=== PATIENT | male | born 1985 | race Caucasian/White ===

== ENCOUNTER 2021-02-23 17:12 | Emergency (ER) | payer SELFPAY ==
[2021-02-23 17:53] LABS: #Basophils 0.2 thou/uL (0.0-0.2); #Eosinphils 0.3 thou/uL (0.0-0.7); #Lymphocytes 1.6 thou/uL (1.20-3.40); #Monocytes 0.6 thou/uL (0.11-0.59); #Neutrophils 7.1 thou/uL (1.40-6.50); %Basophils 1.7 % (0.0-1.0); %Eosinophils 2.8 % (0.0-10.0); %Lymphocytes 16.6 % (21.0-51.0); Hemoglobin 12.7 g/dL (14.0-18.0); Mean Corpuscular HGB CONC 31.4 g/dL (32.0-36.0); Mean Corpuscular Hemoglobin 28.8 pg (27.0-31.0); Mean Corpuscular Volume 91.9 fL (78.0-98.0); Mean Platelet Volume 6.2 fL (7.4-10.4); Platelet Count 324 thou/uL (130-400); RBC Distribution Width 11.7 % (11.5-14.5); White Blood Cell (WBC) Count 9.7 thou/uL (4.8-10.8)
[2021-02-23 18:09] LABS: ALT (SGPT) 13 U/L (8-55); AST (SGOT) 16 U/L (5-34); Albumin 3.8 g/dL (3.5-5.0); Alkaline Phosphatase 106 U/L (40-110); Anion Gap 14 mmol/L (10-20); BUN (Urea Nitrogen) 21 mg/dL (8.9-20.6); Bilirubin, Total 0.7 mg/dL (0.2-1.2); Calc. Creatinine Clearance 0 mL/min (70-130); Calcium 9.6 mg/dL (7.8-10.44); Carbon Dioxide 27 mmol/L (22-29); Chloride 102 mmol/L (98-107); Globulin 3.1 g/dL (2.4-3.5); Glucose 123 mg/dL (70-105); Lipase 48 U/L (8-78); Protein, Total 6.9 g/dL (6.0-8.3); Sodium 139 mmol/L (136-145)
[2021-02-23 18:57] LABS: Bilirubin Negative (Negative); Blood, Urine Trace (Negative); Clarity Clear (Clear); Glucose, Urine (Dipstick) Negative (Negative); Ketone, Urine 15 mg/dL (Negative); Leukocyte Negative (Negative); Nitrite Negative (Negative); Protein, Urine (Dipstick) > or equal to 300 mg/dL (Neg-Trace); Specific Gravity, Urine 1.025 (1.005-1.030); Urobilinogen 0.2 mg/dL (Less than 2); pH, Urine 5.5 (5.0-9.0)
[2021-02-23 19:13] LABS: Bacteria/HPF Rare-Few HPF (None Seen); RBC/HPF 0-3 HPF (0-3); Squamous Epithelial 0-3 HPF (0-3); WBC/HPF 0-3 HPF (0-3)
[2021-02-23] MEDS ORDERED: Ondansetron ODT 4 MG TAB ONE (19:44)
== END 2021-02-23 19:47 | disposition home or self-care (01) ==
LOC: MADERS 17:12
DX: A08.4 Viral intestinal infection, unspecified (principal); I10 Essential (primary) hypertension; E10.9 Type 1 diabetes mellitus without complications; Z79.4 Long term (current) use of insulin; Z79.899 Other long term (current) drug therapy
CPT/HCPCS: 36415; 80053; 81003; 81015; 83690; 85025; 99284; Q0162

== ENCOUNTER 2021-02-25 03:53 | Emergency (ER) | payer SELFPAY ==
[2021-02-25] MEDS ORDERED: Metoclopramide HCl 10 MG/2 ML VIAL ONE (04:26)
[2021-02-25] MEDS ORDERED: diphenhydrAMINE 50 MG/ML VIAL ONE (04:26)
[2021-02-25] MEDS ORDERED: Famotidine In NaCl 20 mg/50 ml Premix Bag ONE (04:26)
[2021-02-25] MEDS ORDERED: Lactated Ringer's 1,000 ML ONE (04:26)
[2021-02-25 04:44] LABS: Anion Gap 33 mmol/L (10-20); Band 7 % (5-11); Hemoglobin 12.9 g/dL (14.0-18.0); Lymphocytes 2 % (21-51); MDiff Complete? YES; Mean Corpuscular HGB CONC 31.5 g/dL (32.0-36.0); Mean Corpuscular Volume 92.2 fL (78.0-98.0); Mean Platelet Volume 6.3 fL (7.4-10.4); Monocytes 6 % (0-10); Neutrophil 85 % (42-75); Platelet Count 371 thou/uL (130-400); RBC Distribution Width 11.8 % (11.5-14.5); RBC Morphology Normal; Red Blood Cell (RBC) Count 4.43 mill/uL (4.70-6.10); White Blood Cell (WBC) Count 25.3 thou/uL (4.8-10.8)
[2021-02-25 04:52] LABS: ALT (SGPT) 15 U/L (8-55); AST (SGOT) 15 U/L (5-34); Albumin 3.7 g/dL (3.5-5.0); Alkaline Phosphatase 109 U/L (40-110); BUN (Urea Nitrogen) 75 mg/dL (8.9-20.6); Bilirubin, Total 0.7 mg/dL (0.2-1.2); Calc. Creatinine Clearance 0 mL/min (70-130); Calcium 8.2 mg/dL (7.8-10.44); Carbon Dioxide 13 mmol/L (22-29); Chloride 84 mmol/L (98-107); Globulin 2.7 g/dL (2.4-3.5); Glucose 655 mg/dL (70-105); Lipase 8 U/L (8-78); Potassium 4.6 mmol/L (3.5-5.1); Protein, Total 6.4 g/dL (6.0-8.3); Sodium 125 mmol/L (136-145)
[2021-02-25] MEDS ORDERED: Sodium Chloride 0.9% 100 ML ONE (05:08)
[2021-02-25] MEDS ORDERED: Insulin Regular 300 UNITS/3 ML VIAL ONE (05:08)
[2021-02-25] MEDS ORDERED: NS 0.9% w/ 20 MEQ KCL 1,000 ML ONE (05:15)
[2021-02-25 05:22] LABS: Base Excess-Venous -9.9 mmol/L (-2.0 to 3.0); Bicarbonate (HCO3v) 15.3 mmol/L (22.0-28.0); CO2 Tension (PvCO2) 30.8 mmHg (42.0-51.0); Chloride 86 mmol/L (98-107); Hemoglobin - Calc 12.7 g/dL (14.0-18.0); Potassium 4.4 mmol/L (3.5-5.1); Sodium 119 mmol/L (138-145); T. Carbon Dioxide 16.2 mmol/L (22.0-28.0); vO2 Saturation-calc 79.6 % (60.0-85.0)
== END 2021-02-25 05:51 | disposition short-term general hospital (02) ==
LOC: MADERS 03:53
DX: E10.10 Type 1 diabetes mellitus with ketoacidosis without coma (principal); N17.9 Acute kidney failure, unspecified; R10.13 Epigastric pain; R94.31 Abnormal electrocardiogram [ECG] [EKG]; I10 Essential (primary) hypertension; Z91.19 Patient's noncompliance with other medical treatment and regimen
CPT/HCPCS: 71046; 80053; 82330; 82803; 83605; 83690; 85025; 93005; 96365; 96367; 96375; J1200; J1815; J2765; J3480; J3490; J7120

== ENCOUNTER 2021-08-18 11:17 | Emergency (ER) | payer SELFPAY ==
[2021-08-18] MEDS ORDERED: Metoclopramide HCl 10 MG/2 ML VIAL ONE (12:20)
[2021-08-18] MEDS ORDERED: Lactated Ringer's 1,000 ML ONE (12:20)
[2021-08-18 12:31] LABS: #Basophils 0.1 thou/uL (0.0-0.2); #Lymphocytes 1.3 thou/uL (1.20-3.40); #Monocytes 1.4 thou/uL (0.11-0.59); #Neutrophils 16.4 thou/uL (1.40-6.50); %Basophils 0.6 % (0.0-1.0); %Eosinophils 0.1 % (0.0-10.0); %Lymphocytes 6.7 % (21.0-51.0); %Monocytes 7.3 % (0.0-10.0); %Neutrophils 85.3 % (42.0-75.0); Hemoglobin 12.2 g/dL (14.0-18.0); Mean Corpuscular HGB CONC 30.9 g/dL (32.0-36.0); Mean Corpuscular Volume 93.8 fL (78.0-98.0); Mean Platelet Volume 8.2 fL (7.4-10.4); Platelet Count 344 thou/uL (130-400); RBC Distribution Width 12.4 % (11.5-14.5); Red Blood Cell (RBC) Count 4.21 mill/uL (4.70-6.10); White Blood Cell (WBC) Count 19.2 thou/uL (4.8-10.8)
[2021-08-18 12:42] LABS: Bilirubin Small (Negative); Blood, Urine Negative (Negative); Clarity Clear (Clear); Glucose, Urine (Dipstick) 100 mg/dL (Negative); Ketone, Urine Negative (Negative); Leukocyte Negative (Negative); Nitrite Negative (Negative); Protein, Urine (Dipstick) 100 mg/dL (Neg-Trace); Urobilinogen 0.2 mg/dL (Less than 2)
[2021-08-18 12:43] LABS: Base Excess-Venous -4.6 mmol/L (-2.0 to 3.0); Bicarbonate (HCO3v) 16.2 mmol/L (22.0-28.0); CO2 Tension (PvCO2) 20.3 mmHg (42.0-51.0); Calcium, Ionized 0.94 mmol/L (1.15-1.33); Chloride 97 mmol/L (98-107); Hemoglobin - Calc 13.6 g/dL (14.0-18.0); Potassium 4.2 mmol/L (3.5-5.1); Sodium 127 mmol/L (138-145); T. Carbon Dioxide 16.8 mmol/L (22.0-28.0); vO2 Saturation-calc 99.6 % (60.0-85.0)
[2021-08-18 12:47] LABS: ALT (SGPT) 11 U/L (8-55); AST (SGOT) 11 U/L (5-34); Albumin 4.2 g/dL (3.5-5.0); Alkaline Phosphatase 121 U/L (40-110); Anion Gap 24 mmol/L (10-20); BUN (Urea Nitrogen) 59 mg/dL (8.9-20.6); Bilirubin, Total 0.6 mg/dL (0.2-1.2); Calc. Creatinine Clearance 0 mL/min (70-130); Calcium 8.8 mg/dL (7.8-10.44); Carbon Dioxide 18 mmol/L (22-29); Chloride 95 mmol/L (98-107); Globulin 3.1 g/dL (2.4-3.5); Glucose 411 mg/dL (70-105); Lipase 18 U/L (8-78); Potassium 4.3 mmol/L (3.5-5.1); Protein, Total 7.3 g/dL (6.0-8.3); Sodium 133 mmol/L (136-145)
[2021-08-18 12:49] LABS: Specific Gravity, Urine 1.016 (1.002-1.036)
[2021-08-18 12:52] LABS: Bacteria/HPF 1+ HPF (None Seen); RBC/HPF 0-3 HPF (0-3); Squamous Epithelial 0-3 HPF (0-3); WBC/HPF 0-3 HPF (0-3)
[2021-08-18] MEDS ORDERED: NS 0.9% w/ 20 MEQ KCL 1,000 ML ONE (13:08)
[2021-08-18] MEDS ORDERED: Insulin Regular 300 UNITS/3 ML VIAL ONE (13:08)
== END 2021-08-18 14:14 | disposition short-term general hospital (02) ==
LOC: MADERS 11:17
DX: E11.10 Type 2 diabetes mellitus with ketoacidosis without coma (principal); N17.9 Acute kidney failure, unspecified; E87.3 Alkalosis; I10 Essential (primary) hypertension
CPT/HCPCS: 36416; 71045; 80053; 81003; 81015; 82010; 82330; 82803; 83605; 83690; 84484; 85025; 87086; 93005; 94760; 96374; 96375; J1815; J2765; J3480; J7120

== ENCOUNTER 2021-11-03 23:09 | Emergency (ER) | payer SELFPAY ==
[2021-11-03] MEDS ORDERED: Ondansetron PF 4 MG/2 ML Vial ONE (23:31)
[2021-11-03 23:46] LABS: #Basophils 0.1 thou/uL (0.0-0.2); #Lymphocytes 1.4 thou/uL (1.20-3.40); #Monocytes 0.7 thou/uL (0.11-0.59); #Neutrophils 10.2 thou/uL (1.40-6.50); %Eosinophils 0.3 % (0.0-10.0); %Lymphocytes 11.1 % (21.0-51.0); %Monocytes 5.6 % (0.0-10.0); Hemoglobin 11.8 g/dL (14.0-18.0); Mean Corpuscular HGB CONC 32.7 g/dL (32.0-36.0); Mean Corpuscular Hemoglobin 28.4 pg (27.0-31.0); Mean Corpuscular Volume 86.9 fL (78.0-98.0); Mean Platelet Volume 7.8 fL (7.4-10.4); Platelet Count 269 thou/uL (130-400); Red Blood Cell (RBC) Count 4.15 mill/uL (4.70-6.10); White Blood Cell (WBC) Count 12.5 thou/uL (4.8-10.8)
[2021-11-03 23:48] LABS: Bilirubin Negative (Negative); Blood, Urine Trace (Negative); Clarity Clear (Clear); Glucose, Urine (Dipstick) 500 mg/dL (Negative); Ketone, Urine 15 mg/dL (Negative); Leukocyte Negative (Negative); Nitrite Negative (Negative); Protein, Urine (Dipstick) 100 mg/dL (Neg-Trace); Specific Gravity, Urine 1.015 (1.005-1.030); Urobilinogen 0.2 mg/dL (Less than 2)
[2021-11-03 23:54] LABS: Bacteria/HPF None Seen HPF (None Seen); RBC/HPF None Seen HPF (0-3); Squamous Epithelial 0-3 HPF (0-3); Transitional Epithelial 0-3 HPF (None Seen); WBC/HPF 0-3 HPF (0-3)
[2021-11-04] LABS: ALT (SGPT) 12 U/L (8-55); AST (SGOT) 10 U/L (5-34); Alkaline Phosphatase 85 U/L (40-110); Anion Gap 18 mmol/L (10-20); BUN (Urea Nitrogen) 41 mg/dL (8.9-20.6); Bilirubin, Total 0.8 mg/dL (0.2-1.2); Calc. Creatinine Clearance 0 mL/min (70-130); Calcium 9.2 mg/dL (7.8-10.44); Carbon Dioxide 26 mmol/L (22-29); Chloride 95 mmol/L (98-107); Estimated GFR 39; Globulin 2.8 g/dL (2.4-3.5); Glucose 322 mg/dL (70-105); Potassium 3.7 mmol/L (3.5-5.1); Protein, Total 6.8 g/dL (6.0-8.3); Sodium 135 mmol/L (136-145)
[2021-11-04] MEDS ORDERED: Lidocaine Viscous Sol 2% 15 ml UD Cup ONE (00:09)
[2021-11-04] MEDS ORDERED: Mag-Al Plus 1200 MG/1200 MG/120 MG/30 ML UDCUP ONE (00:09)
[2021-11-04 00:16] LABS: Amphetamine Not Detected (NotDetected); Barbiturates Screen Not Detected (NotDetected); Benzodiazepine Screen Not Detected (NotDetected); Cocaine Metabolite Screen Not Detected (NotDetected); Medtox Control Line Valid? VALID (VALID); Methadone Not Detected (NotDetected); Methamphetamine Not Detected (NotDetected); Opiate Screen Not Detected (NotDetected); Oxycodone Screen Not Detected (NotDetected); Phencyclidine (PCP) Not Detected (NotDetected); THC/Cannabinoid Screen Detected (NotDetected); Tricyclic Screen Not Detected (NotDetected)
[2021-11-04] MEDS ORDERED: Sodium Chloride 0.9% 2,000 ML ONE (00:31)
== END 2021-11-04 02:55 | disposition home or self-care (01) ==
LOC: MADERS 23:09
DX: K85.90 Acute pancreatitis without necrosis or infection, unspecified (principal); N28.9 Disorder of kidney and ureter, unspecified; E86.9 Volume depletion, unspecified; E10.9 Type 1 diabetes mellitus without complications; I10 Essential (primary) hypertension; Z79.4 Long term (current) use of insulin; Z79.899 Other long term (current) drug therapy
CPT/HCPCS: 74176; 80053; 80306; 81003; 81015; 83690; 84484; 85025; 93005; 96361; 96374; J2405; J7050

== ENCOUNTER 2021-12-16 01:13 | Emergency (ER) | payer SELFPAY ==
[2021-12-16 01:56] LABS: #Basophils 0.1 thou/uL (0.0-0.2); #Lymphocytes 1.1 thou/uL (1.20-3.40); #Monocytes 0.8 thou/uL (0.11-0.59); #Neutrophils 13.6 thou/uL (1.40-6.50); %Basophils 0.6 % (0.0-1.0); %Monocytes 5.3 % (0.0-10.0); %Neutrophils 87.1 % (42.0-75.0); Hemoglobin 11.2 g/dL (14.0-18.0); Mean Corpuscular HGB CONC 32.1 g/dL (32.0-36.0); Mean Corpuscular Hemoglobin 29.3 pg (27.0-31.0); Mean Corpuscular Volume 91.2 fL (78.0-98.0); Mean Platelet Volume 8.6 fL (7.4-10.4); Platelet Count 251 thou/uL (130-400); RBC Distribution Width 12.1 % (11.5-14.5); Red Blood Cell (RBC) Count 3.84 mill/uL (4.70-6.10); White Blood Cell (WBC) Count 15.6 thou/uL (4.8-10.8)
[2021-12-16 02:10] LABS: Bilirubin Negative (Negative); Blood, Urine Negative (Negative); Clarity Clear (Clear); Glucose, Urine (Dipstick) >=1000 mg/dL (Negative); Ketone, Urine 15 mg/dL (Negative); Leukocyte Negative (Negative); Nitrite Negative (Negative); Protein, Urine (Dipstick) 100 mg/dL (Neg-Trace); Specific Gravity, Urine 1.015 (1.005-1.030); Urobilinogen 0.2 mg/dL (Less than 2)
[2021-12-16 02:10] LABS: Base Excess-Venous -3.2 mmol/L (-2.0 to 3.0); Bicarbonate (HCO3v) 21.8 mmol/L (22.0-28.0); CO2 Tension (PvCO2) 38.3 mmHg (42.0-51.0); Calcium, Ionized 1.06 mmol/L (1.15-1.33); Chloride 101 mmol/L (98-107); Hemoglobin - Calc 15.6 g/dL (14.0-18.0); Potassium 4.4 mmol/L (3.5-5.1); Sodium 135 mmol/L (138-145); vO2 Saturation-calc 88.2 % (60.0-85.0)
[2021-12-16] MEDS ORDERED: Ondansetron PF 4 MG/2 ML Vial ONE (02:14)
[2021-12-16 02:15] LABS: RBC/HPF 0-3 HPF (0-3)
[2021-12-16 02:16] LABS: WBC/HPF 0-3 HPF (0-3)
[2021-12-16 02:17] LABS: ALT (SGPT) 12 U/L (8-55); AST (SGOT) 11 U/L (5-34); Albumin 3.9 g/dL (3.5-5.0); Alkaline Phosphatase 100 U/L (40-110); Anion Gap 17 mmol/L (10-20); BUN (Urea Nitrogen) 42 mg/dL (8.9-20.6); Bilirubin, Total 0.5 mg/dL (0.2-1.2); Calc. Creatinine Clearance 0 mL/min (70-130); Carbon Dioxide 24 mmol/L (22-29); Chloride 99 mmol/L (98-107); Estimated GFR 40; Globulin 2.7 g/dL (2.4-3.5); Glucose 437 mg/dL (70-105); Lipase 21 U/L (8-78); Potassium 4.4 mmol/L (3.5-5.1); Protein, Total 6.6 g/dL (6.0-8.3); Sodium 136 mmol/L (136-145)
[2021-12-16 02:18] LABS: Glucose 434 mg/dL (70-105); Magnesium 1.9 mg/dL (1.6-2.6)
[2021-12-16 02:38] LABS: Amphetamine Not Detected (NotDetected); Barbiturates Screen Not Detected (NotDetected); Benzodiazepine Screen Not Detected (NotDetected); Cocaine Metabolite Screen Not Detected (NotDetected); Methadone Not Detected (NotDetected); Methamphetamine Not Detected (NotDetected); Opiate Screen Not Detected (NotDetected); Oxycodone Screen Not Detected (NotDetected); Phencyclidine (PCP) Not Detected (NotDetected); THC/Cannabinoid Screen Detected (NotDetected); Tricyclic Screen Not Detected (NotDetected)
[2021-12-16 02:39] LABS: Medtox Control Line Valid? VALID (VALID)
[2021-12-16 02:42] LABS: Acetaminophen Less than 10.0 mcg/mL (10.0-30.0); Alcohol Less than 10 mg/dL (Less than 10); Salicylate Less than 8.0 mg/dL (15.0-30.0)
[2021-12-16] MEDS ORDERED: Capsaicin 0.025% Cream 60 gm Tube ONE (02:43)
[2021-12-16 02:47] LABS: SARS-CoV-2 NAA Rapid Test Not Detected (NotDetected)
[2021-12-16] MEDS ORDERED: Insulin Regular 300 UNITS/3 ML VIAL ONE (02:47)
[2021-12-16] MEDS ORDERED: Magnesium 2 GM/50 ML BAG (IN WATER) ONE (02:49)
[2021-12-16] MEDS ORDERED: Haloperidol Lactate 5 MG/ML VIAL ONE (03:30)
[2021-12-16] MEDS ORDERED: diphenhydrAMINE 50 MG/ML VIAL ONE (03:30)
[2021-12-16 05:47] LABS: Anion Gap 19 mmol/L (10-20); BUN (Urea Nitrogen) 42 mg/dL (8.9-20.6); Calc. Creatinine Clearance 0 mL/min (70-130); Calcium 8.7 mg/dL (7.8-10.44); Carbon Dioxide 20 mmol/L (22-29); Chloride 102 mmol/L (98-107); Estimated GFR 42; Glucose 412 mg/dL (70-105); Potassium 4.3 mmol/L (3.5-5.1); Sodium 137 mmol/L (136-145)
[2021-12-16] MEDS ORDERED: Sodium Chloride 0.9% 1,000 ML BAG ONE (06:52)
== END 2021-12-16 06:29 | disposition short-term general hospital (02) ==
LOC: MADERS 01:13
DX: R11.2 Nausea with vomiting, unspecified (principal); F12.90 Cannabis use, unspecified, uncomplicated; E86.0 Dehydration; E10.65 Type 1 diabetes mellitus with hyperglycemia; R00.0 Tachycardia, unspecified; I10 Essential (primary) hypertension; Z79.4 Long term (current) use of insulin; Z20.822 Contact with and (suspected) exposure to COVID-19
CPT/HCPCS: 36416; 71045; 80053; 80306; 80307; 81003; 81015; 82010; 82330; 82803; 83605; 83690; 83735; 83880; 84484; 85025; 87086; 93005; 96365; 96372; 96374; 96375; J1200; J1630; J1815; J2405; J3475; J7050; U0002

== ENCOUNTER 2021-12-22 02:57 | Emergency (ER) | payer SELFPAY ==
[2021-12-22] MEDS ORDERED: Sodium Chloride 0.9% 1,000 ML ONE ×2 (03:16→04:46)
[2021-12-22] MEDS ORDERED: Ondansetron PF 4 MG/2 ML Vial ONE (03:16)
[2021-12-22 03:33] LABS: #Basophils 0.1 thou/uL (0.0-0.2); #Lymphocytes 1.5 thou/uL (1.20-3.40); #Monocytes 0.9 thou/uL (0.11-0.59); #Neutrophils 10.7 thou/uL (1.40-6.50); %Basophils 0.6 % (0.0-1.0); %Eosinophils 0.4 % (0.0-10.0); %Lymphocytes 11.3 % (21.0-51.0); %Monocytes 6.5 % (0.0-10.0); %Neutrophils 81.3 % (42.0-75.0); Hemoglobin 11.6 g/dL (14.0-18.0); Mean Corpuscular HGB CONC 33.1 g/dL (32.0-36.0); Mean Corpuscular Hemoglobin 29.8 pg (27.0-31.0); Mean Platelet Volume 8.5 fL (7.4-10.4); Platelet Count 278 thou/uL (130-400); RBC Distribution Width 11.7 % (11.5-14.5); White Blood Cell (WBC) Count 13.2 thou/uL (4.8-10.8)
[2021-12-22] MEDS ORDERED: Insulin Regular 300 UNITS/3 ML VIAL ONE (03:40)
[2021-12-22 03:48] LABS: Base Excess-Venous 1.5 mmol/L (-2.0 to 3.0); Bicarbonate (HCO3v) 26.7 mmol/L (22.0-28.0); CO2 Tension (PvCO2) 43.3 mmHg (42.0-51.0); Calcium, Ionized 1.12 mmol/L (1.15-1.33); Chloride 94 mmol/L (98-107); Potassium 3.8 mmol/L (3.5-5.1); Sodium 133 mmol/L (138-145); vO2 Saturation-calc 78.3 % (60.0-85.0)
[2021-12-22 03:55] LABS: ALT (SGPT) 12 U/L (8-55); AST (SGOT) 8 U/L (5-34); Albumin 3.8 g/dL (3.5-5.0); Alkaline Phosphatase 88 U/L (40-110); Anion Gap 18 mmol/L (10-20); BUN (Urea Nitrogen) 39 mg/dL (8.9-20.6); Bilirubin, Total 0.5 mg/dL (0.2-1.2); Calc. Creatinine Clearance 0 mL/min (70-130); Calcium 9.4 mg/dL (7.8-10.44); Carbon Dioxide 26 mmol/L (22-29); Chloride 94 mmol/L (98-107); Estimated GFR 30; Globulin 2.8 g/dL (2.4-3.5); Glucose 291 mg/dL (70-105); Lipase 8 U/L (8-78); Magnesium 2.1 mg/dL (1.6-2.6); Protein, Total 6.6 g/dL (6.0-8.3); Sodium 134 mmol/L (136-145)
[2021-12-22 03:56] LABS: Acetaminophen Less than 10.0 mcg/mL (10.0-30.0); Alcohol Less than 10 mg/dL (Less than 10); Salicylate Less than 8.0 mg/dL (15.0-30.0)
[2021-12-22 05:31] LABS: Bilirubin Small (Negative); Blood, Urine Negative (Negative); Clarity Clear (Clear); Glucose, Urine (Dipstick) 100 mg/dL (Negative); Ketone, Urine Trace mg/dL (Negative); Leukocyte Negative (Negative); Nitrite Negative (Negative); Protein, Urine (Dipstick) 100 mg/dL (Neg-Trace); Specific Gravity, Urine 1.025 (1.005-1.030); Urobilinogen 0.2 mg/dL (Less than 2)
[2021-12-22 05:37] LABS: RBC/HPF 0-3 HPF (0-3); Squamous Epithelial 0-3 HPF (0-3); WBC/HPF 0-3 HPF (0-3)
[2021-12-22 05:53] LABS: Amphetamine Not Detected (NotDetected); Barbiturates Screen Not Detected (NotDetected); Benzodiazepine Screen Not Detected (NotDetected); Cocaine Metabolite Screen Not Detected (NotDetected); Medtox Control Line Valid? VALID (VALID); Methadone Not Detected (NotDetected); Methamphetamine Not Detected (NotDetected); Opiate Screen Not Detected (NotDetected); Oxycodone Screen Not Detected (NotDetected); Phencyclidine (PCP) Not Detected (NotDetected); THC/Cannabinoid Screen Detected (NotDetected); Tricyclic Screen Not Detected (NotDetected)
== END 2021-12-22 07:15 | disposition home or self-care (01) ==
LOC: MADERS 02:57
DX: E10.65 Type 1 diabetes mellitus with hyperglycemia (principal); R11.2 Nausea with vomiting, unspecified; I10 Essential (primary) hypertension; D72.829 Elevated white blood cell count, unspecified; R79.89 Other specified abnormal findings of blood chemistry; Z79.4 Long term (current) use of insulin; Z79.899 Other long term (current) drug therapy
CPT/HCPCS: 36415; 36416; 80053; 80306; 80307; 81003; 81015; 82010; 82330; 82803; 83605; 83690; 83735; 83880; 85025; 96361; 96374; J1815; J2405; J7050

== ENCOUNTER 2022-04-02 01:13 | Emergency (ER) | payer OTHER ==
[2022-04-02] MEDS ORDERED: Metoclopramide HCl 10 MG/2 ML VIAL ONE (01:34)
[2022-04-02] MEDS ORDERED: Sodium Chloride 0.9% 1,000 ML ONE ×3 (01:34→03:54)
[2022-04-02 02:24] LABS: Band 11 % (5-11); Hemoglobin 12.3 g/dL (14.0-18.0); Lymphocytes 9 % (21-51); MDiff Complete? YES; Mean Corpuscular HGB CONC 33.5 g/dL (32.0-36.0); Mean Corpuscular Hemoglobin 29.8 pg (27.0-31.0); Mean Corpuscular Volume 89.1 fl (78.0-98.0); Mean Platelet Volume 6.6 fL (7.4-10.4); Monocytes 3 % (0-10); Neutrophil 77 % (42-75); Platelet Count 307 10x3/uL (130-400); RBC Distribution Width 11.8 % (11.5-14.5); RBC Morphology Normal; Red Blood Cell (RBC) Count 4.13 mill/uL (4.70-6.10); White Blood Cell (WBC) Count 16.9 10x3/uL (4.8-10.8)
[2022-04-02 02:25] LABS: ALT (SGPT) 11 U/L (8-55); AST (SGOT) 11 U/L (5-34); Alcohol Less than 10 mg/dL (Less than 10); Alkaline Phosphatase 145 U/L (40-110); Amphetamine Not Detected (NotDetected); Anion Gap 22 mmol/L (10-20); BUN (Urea Nitrogen) 42 mg/dL (8.9-20.6); Barbiturates Screen Not Detected (NotDetected); Benzodiazepine Screen Not Detected (NotDetected); Bilirubin, Total 0.6 mg/dL (0.2-1.2); Calc. Creatinine Clearance 0 mL/min (70-130); Calcium 9.5 mg/dL (7.8-10.44); Carbon Dioxide 23 mmol/L (22-29); Chloride 92 mmol/L (98-107); Cocaine Metabolite Screen Not Detected (NotDetected); Estimated GFR 35; Globulin 3.5 g/dL (2.4-3.5); Medtox Control Line Valid? VALID (VALID); Methadone Not Detected (NotDetected); Methamphetamine Not Detected (NotDetected); Opiate Screen Not Detected (NotDetected); Oxycodone Screen Not Detected (NotDetected); Phencyclidine (PCP) Not Detected (NotDetected); Potassium 4.7 mmol/L (3.5-5.1); Protein, Total 7.5 g/dL (6.0-8.3); Sodium 132 mmol/L (136-145); THC/Cannabinoid Screen Detected (NotDetected); Tricyclic Screen Not Detected (NotDetected)
[2022-04-02 02:31] LABS: Base Excess-Venous -0.2 mmol/L (-2.0 to 3.0); Bicarbonate (HCO3v) 24.6 mmol/L (22.0-28.0); CO2 Tension (PvCO2) 39.6 mmHg (42.0-51.0); Chloride 93 mmol/L (98-107); Hemoglobin - Calc 13.5 g/dL (14.0-18.0); Potassium 4.5 mmol/L (3.5-5.1); Sodium 129 mmol/L (138-145)
[2022-04-02 02:32] LABS: Calcium, Ionized 1.02 mmol/L (1.15-1.33); T. Carbon Dioxide 25.8 mmol/L (22.0-28.0)
[2022-04-02 02:34] LABS: Glucose 463 mg/dL (70-105)
[2022-04-02 03:43] LABS: Bilirubin Negative (Negative); Blood, Urine Trace (Negative); Clarity Clear (Clear); Glucose, Urine (Dipstick) 500 mg/dL (Negative); Ketone, Urine Trace mg/dL (Negative); Leukocyte Negative (Negative); Nitrite Negative (Negative); Protein, Urine (Dipstick) 100 mg/dL (Neg-Trace); Specific Gravity, Urine 1.015 (1.005-1.030); Urobilinogen 0.2 mg/dL (Less than 2); pH, Urine 5.5 (5.0-9.0)
[2022-04-02 03:49] LABS: Bacteria/HPF None Seen HPF (None Seen); RBC/HPF 0-3 HPF (0-3); Squamous Epithelial 0-3 HPF (0-3); WBC/HPF 0-3 HPF (0-3)
[2022-04-02] MEDS ORDERED: Insulin Regular 300 UNITS/3 ML VIAL ONE (08:46)
== END 2022-04-02 06:05 | disposition home or self-care (01) ==
LOC: MADERS 01:13
DX: E10.65 Type 1 diabetes mellitus with hyperglycemia (principal); N28.9 Disorder of kidney and ureter, unspecified; E86.0 Dehydration; I10 Essential (primary) hypertension; Z79.4 Long term (current) use of insulin; Z79.899 Other long term (current) drug therapy
CPT/HCPCS: 36416; 80053; 80306; 80307; 81003; 81015; 82010; 82330; 82803; 85025; 93005; 96361; 96374; J1815; J2765; J7050